=== PATIENT | male | born 1950 | race Caucasian/White ===

== ENCOUNTER 2016-10-13 05:45 | Inpatient (IN) | payer OTHER ==
[2016-10-13] MEDS ORDERED: LR 1,000 ML IV ONE (05:56)
[2016-10-13] MEDS ORDERED: LIDOCAINE 1% 2 ML INJ ID PRN (05:56)
[2016-10-13] MEDS ORDERED: cefOXitin SODIUM 2 GM in D5W 100 ML IV ONE (06:15)
[2016-10-13] MEDS ORDERED: BUPIVACAINE/EPI 0.5% 30 ML SDV ONE (06:50)
--- NOTE | 2016-10-13 07:03 | PDANEPAE ---
ANE Past Medical History - Cardiovascular History Hx Hypertension: No Hx Arrhythmias: No Hx Chest Pain: No Hx Coronary Artery / Peripheral Vascular Disease: No Hx CHF / Valvular Disease: No Hx Palpitations: No Cardiovascular History Comment: low BP. Cardiac workup in 2013 WNL. (episode of syncope) - Pulmonary History Hx COPD: No Hx Asthma/Reactive Airway Disease: No Hx Recent Upper Respiratory Infection: No Hx Oxygen in Use at Home: No Hx Sleep Apnea: No Sleep Apnea Screening Result - Last Documented: Negative - Neurologic History Hx Cerebrovascular Accident: No Hx Seizures: No Hx Dementia: No - Endocrine History Hx Diabetes: No - Renal History Hx Renal Disorders: No Renal History Comment: Prostate CA - Liver History Hx Hepatic Disorders: No - Neurological & Psychiatric Hx Hx Neurological and Psychiatric Disorders: No Neurological / Psychiatric History Comment: compressed disc-occ low back pain - Cancer History Hx Cancer: Yes Cancer History Comment: prostate - Congenital Disorder History Hx Congenital Disorders: No - GI History Hx Gastrointestinal Disorders: No - Chronic Pain History Chronic Pain: No - Surgical History Prior Surgeries: R inguinal hernia repair 2015. R rotator cuff ANE Review of Systems - Exercise capacity METS (RN): 4 METS ANE Patient History - Allergies Allergies/Adverse Reactions: No Known Allergies Allergy (Verified 09/14/16 12:06) - Home Medications Home Medications: Cholecalciferol Vit D3 [Vitamin D3 2000 units tab (OTC)] 2,000 units PO DAILY [Last Taken 10/03/16] Multivitamins [Multivitamin (*)] 1 each PO DAILY 09/14/16 [Last Taken 10/03/16] - NPO status NPO Since - Liquids (Date): 10/12/16 NPO Since - Liquids (Time): 23:15 NPO Since - Solids (Date): 10/12/16 NPO Since - Solids (Time): 22:15 - Smoking Hx Smoking Status: Never smoked ANE Labs/Vital Signs - Vital Signs Blood Pressure: 125/78 Heart Rate: 73 Respiratory Rate: 16 O2 Sat (%): 93 Height: 185.42 cm Weight: 80.739 kg ANE Physical Exam - Airway Mallampati Score: Class 2 - ASA Status ASA Status: II ANE Anesthesia Plan Anesthesia Plan: general endotracheal anesthesia
[2016-10-13] MEDS ORDERED: MIDAZOLAM 2 MG/2 ML VIAL ONE (07:06)
[2016-10-13] MEDS ORDERED: fentaNYL 100 MCG/2 ML INJ ONE ×4 (07:08→13:43)
[2016-10-13] MEDS ORDERED: ROCURONIUM 50 MG/5 ML VIAL ONE ×2 (07:08→10:09)
[2016-10-13] MEDS ORDERED: PROPOFOL 200 MG/20 ML VIAL ONE (07:08)
[2016-10-13] MEDS ORDERED: METOCLOPRAMIDE 10 MG/2 ML VIAL ONE (07:08)
[2016-10-13] MEDS ORDERED: ONDANSETRON 4 MG/2 ML VIAL ONE (07:08)
--- NOTE | 2016-10-13 07:24 | PDHPUP ---
History & Physical Update H&P update statement: This history and physical update is based on an assessment of the patient which was completed after admission or registration (within 24 hours), but prior to the surgery/procedure. H&P update: no change in patient's condition since H&P completed
[2016-10-13] MEDS ORDERED: METHYLENE BLUE 0.5% 50 MG/10 ML AMP ONE (08:38)
[2016-10-13] MEDS ORDERED: THROMBIN(HUM PLAS)/FIBRINOG/CA 5 ML VIAL TP ONE (09:16)
[2016-10-13] MEDS ORDERED: ONDANSETRON 4 MG/2 ML VIAL IVP PRN ×2 (13:17→13:24)
[2016-10-13] MEDS ORDERED: NALOXONE HCL 0.4 MG/ML INJ IVP PRN ×2 (13:17→13:25)
[2016-10-13] MEDS ORDERED: PROMETHAZINE HCL 25 MG/ML INJ IVP PRN ×2 (13:17→13:24)
[2016-10-13] MEDS ORDERED: LR 500 ML IV PRN (13:17)
--- NOTE | 2016-10-13 13:18 | POSTANESTH ---
Post Anesthetic Evaluation Cardiovascular Status: Normal, Stable Respiratory Status: Normal, Stable Level of Consciousness/Mental Status: Can Participate in Eval Pain Control: Adequate, Prn Tx Ordered Nausea/Vomiting Control: Adequate, Prn Tx Ordered Complications Possibly Related to Anesthesia: None Noted
--- NOTE | 2016-10-13 13:23 | POSTOPPROG ---
Post Op Note Date of Operation: 10/18/16 Surgeon: Guru Dubon (# [id number]) Anesthesia: GET(General Endotracheal) Pre-op Diagnosis: Prostate cancer Post-op Diagnosis: 1. Prostate cancer 2. Possible left ureteral injury Procedure: 1. Robotic radical prostatectomy + bilat. PLND 2. Left ureteral reimplan Findings: See op note Inf/Abcess present in the surg proc area at time of surgery?: No EBL: 50-100 (350 cc) Complications: Potential left ureteral injury, necessitating left ureteroneocystostomy Drains: Ashu Newsome (10 Flat) Specimen(s): 1. Prostate + SV's 2. Bilateral PLN packages
[2016-10-13] MEDS ORDERED: LIDOCAINE 2% JELLY 5 ML TUBE TP PRN (13:24)
[2016-10-13] MEDS ORDERED: HYDROmorphONE/DILAUDID 6 MG/30 ML PCA IV PRN (13:25)
[2016-10-13] MEDS: fentaNYL 100 MCG/2 ML INJ IVP PRN ×2 (13:48→14:05)
[2016-10-13 14:17] LABS: ANION GAP 13 mEq/L (8-16); CALCIUM 8.3 mg/dL (8.5-10.4); CARBON DIOXIDE 24 mEq/l (22-31); CHLORIDE 105 mEq/L (97-110); CREATININE 1.1 mg/dL (0.7-1.3); GLOMERULAR FILTRATION RATE > 60; GLUCOSE 171 mg/dL (70-100); POTASSIUM 3.6 mEq/L (3.5-5.2); SODIUM 142 mEq/L (134-144)
[2016-10-13] MEDS ORDERED: cefOXitin SODIUM 2 GM in D5W 100 ML IV SCH (15:00)
[2016-10-13] MEDS: D5W 1/2 NS 1,000 ML IV SCH ×2 (15:01→23:01)
[2016-10-13] MEDS: cefOXitin SODIUM 2 GM in D5W 100 ML IV SCH ×2 (16:53→22:57)
[2016-10-13] MEDS ORDERED: KETOROLAC 30 MG/1 ML SDV IVP ONE (23:01)
[2016-10-14] MEDS: KETOROLAC 15 MG/1 ML SDV IVP SCH ×4 (04:11→22:25)
[2016-10-14] MEDS: D5W 1/2 NS 1,000 ML IV SCH (04:12)
[2016-10-14 05:17] LABS: HEMOGLOBIN 11.6 g/dL (13.7-17.5); MEAN CELL HEMOGLOBIN 31.3 pg (27.9-34.1); MEAN CELL HEMOGLOBIN CONCENTR. 33.1 g/dL (32.4-36.7); MEAN CELL VOLUME 94.3 fL (81.5-99.8); RED BLOOD CELL COUNT 3.71 10^6/uL (4.40-6.38); RED CELL DISTRIBUTION WIDTH 12.9 % (11.5-15.2)
[2016-10-14 05:32] LABS: ANION GAP 5 mEq/L (8-16); CALCIUM 7.9 mg/dL (8.5-10.4); CARBON DIOXIDE 26 mEq/l (22-31); CHLORIDE 103 mEq/L (97-110); CREATININE 0.9 mg/dL (0.7-1.3); GLOMERULAR FILTRATION RATE > 60; GLUCOSE 129 mg/dL (70-100); POTASSIUM 3.8 mEq/L (3.5-5.2); SODIUM 134 mEq/L (134-144)
[2016-10-14] MEDS: cefOXitin SODIUM 2 GM in D5W 100 ML IV SCH (07:50)
--- NOTE | 2016-10-14 10:08 | SOAPPROG ---
<Stella Russell - Last Filed: 10/14/16 10:06> SOAP Progress Note Assessment/Plan: Assessment: Post op robotic radical prostatectomy with lymph node dissection Plan: Advance diet to regular. Patient is to ambulate. Dr Dubon to see this afternoon and consider discharge. 10/14/16 10:06 Objective: Vital Signs Temp Pulse Resp BP Pulse Ox 36.5 C 74 16 105/59 L 96 10/14/16 08:15 10/14/16 08:15 10/14/16 08:15 10/14/16 08:15 10/14/16 08:15 Laboratory Results 10/14/16 04:47 10/14/16 04:47 10/13/16 10/14/16 10/15/16 05:59 05:59 05:59 Intake Total 4645 Output Total 1620 Balance 3025 Physical Exam - Physical Exam General Appearance: alert, no apparent distress Respiratory: normal breath sounds, No respiratory distress Cardiac/Chest: regular rate, rhythm Abdomen: non-tender, other (VICTORINO minimal bloody fluid output. incisions without sign of infection), No distended Male Genitalia: other (bloody urine in catheter bag) Skin: normal color, warm/dry Neuro/Psych: no motor/sensory deficits, alert ICD10 Worksheet Patient Problems: Problems Problem Status Onset Prostate cancer Acute - ICD10 Problem Qualifiers (1) Prostate cancer <Guru Dubon Nisha - Last Filed: 10/14/16 17:19> SOAP Progress Note Assessment/Plan: Assessment: Agree. He is doing well, but has only ambulated once today. Plan: Discharge either this evening or in AM. Objective: Vital Signs Temp Pulse Resp BP Pulse Ox 36.8 C 90 18 112/72 91 L 10/14/16 15:42 10/14/16 15:42 10/14/16 15:42 10/14/16 15:42 10/14/16 15:42 Laboratory Results 10/14/16 04:47 10/14/16 04:47 10/13/16 10/14/16 10/15/16 05:59 05:59 05:59 Intake Total 4645 865 Output Total 1620 1460 Balance 3025 -595
[2016-10-14] MEDS ORDERED: MAGNESIUM HYDROXIDE 30 ML UDCUP PO PRN (14:19)
[2016-10-14] MEDS: HYDROCODONE/APAP 10/325 TAB PO PRN ×2 (15:48→22:26)
[2016-10-14] MEDS: SENNOSIDES/DOCUSATE SODIUM TAB PO SCH (20:42)
[2016-10-15] MEDS: KETOROLAC 15 MG/1 ML SDV IVP SCH ×2 (04:42→12:58)
[2016-10-15] MEDS: SENNOSIDES/DOCUSATE SODIUM TAB PO SCH (09:52)
--- NOTE | 2016-10-15 10:06 | SOAPPROG ---
SOAP Progress Note Assessment/Plan: Assessment: Pt is doing well, but kept overnight due to minimal ambulation. Plan: Discharge. 10/15/16 10:05 Objective: Vital Signs Temp Pulse Resp BP Pulse Ox 37.0 C 86 16 117/64 91 L 10/15/16 07:58 10/15/16 07:58 10/15/16 07:58 10/15/16 07:58 10/15/16 07:58 Laboratory Results 10/14/16 04:47 10/14/16 04:47 10/14/16 10/15/16 10/16/16 05:59 05:59 05:59 Intake Total 4645 1265 Output Total 1620 0920 Balance 3025 -1325 ICD10 Worksheet Patient Problems: Problems Problem Status Onset Prostate cancer Acute
[2016-10-15] MEDS: HYDROCODONE/APAP 10/325 TAB PO PRN ×2 (12:50→14:51)
[2016-10-15 15:17] VITALS: BP 121/72; PULSE 81; RESP 18; TEMP 98.4; O2SAT 95
--- NOTE | 2016-10-19 | GOP ---
[f rep st] OPERATIVE REPORT DATE OF OPERATION: 10/13/2016 SURGEON: Guru Dubon MD SENIOR CONSTRUCTION MANAGER: Nazanin James CFA ANESTHESIA: General endotracheal. PREOPERATIVE DIAGNOSIS: Prostate adenocarcinoma. POSTOPERATIVE DIAGNOSIS: 1. Prostate adenocarcinoma. 2. Potential left ureteral injury. PROCEDURE PERFORMED: 1. Robotically-assisted radical retropubic prostatectomy and bilateral pelvic lymphadenectomy. 2. Robotically-assisted left ureteroneocystostomy with ureteral stent placement. FINDINGS: 1. Clinically localized prostate cancer. 2. Potential intraoperative left ureteral injury, as noted in the body of the operative report. SPECIMENS: 1. Prostate with attached seminal vesicles. 2. Bilateral pelvic lymph node packages. ESTIMATED BLOOD LOSS: Approximately 350 cc. INDICATIONS: This gentleman was recently diagnosed with a clinically-localized prostate adenocarcin mamta and has opted for radical prostatectomy as definitive therapy. The indications for the procedur es as well as potential risks and complications were discussed with the patient preoperatively. He appeared to understand, his questions were answered, and he wished to proceed. Written informed davie gical consent was thereafter obtained. DESCRIPTION OF PROCEDURE: The patient was brought to the operating room and administered general en dotracheal anesthesia. He was carefully placed in a low lithotomy position in a supine fashion on t he operating room table utilizing Conor stirrups. The abdomen and genitalia were sterilely prepped and draped utilizing Ioban. An 18-Syrian Galvez catheter was placed to bag drainage sterilely on the field without complication. Intraabdominal access was obtained in the midline, just above the umbi licus with a Veress needle. The abdomen was insufflated to 15 mmHg pressure, which was the pressure maintained throughout the majority of the case. A 12 mm laparoscopic port was placed at this locat ion and proper intraabdominal positioning was confirmed with the robotic camera. I then marked out my remaining port sites, which were as follows: An 8 mm robotic port in the left lower quadrant kalpana roximately 2 cm below the umbilicus and 12 cm lateral to the midline; an 8 mm robotic port in right lower quadrant approximately 2 cm below the umbilicus and 7.5 cm lateral to the midline; a 3rd 8 mm robotic port placed approximately 8 cm lateral to the right lower quadrant port and in the same huang sverse line as the umbilicus; and a 12 mm recreation assistant port placed in the left upper quadrant, all yariel g the lateral edge of the rectus muscle. All these ports were placed under direct vision without co mplication. The patient was then placed in 27-degree Trendelenburg position and the robot was docke d between the patient's legs with all appropriate arms connected to the respective ports. I used a 0-degree 12 mm camera throughout the remainder of the case. I then left the patient's bedside and e ntered the surgeon's robotic console. I began the robotic portion of the procedure by mobilizing the left colon off the lateral abdominal wall carefully with monopolar scissors dissection. After performing this maneuver, this allowed for adequate access to the prerectal space. A transverse incision across the midline was made through the posterior perineum approximately 2 cm above the rectum. Gentle spreading motion was then used t o attempt to identify the location of the vas deferens and seminal vesicles. I did have some diffic ulty identifying these structures initially. I decided to try and track the vas deferens on the lef t side from the position of the spermatic cord and follow it down into the deep pelvis. I identifie d a structure which I thought was the vas deferens. I followed it into the pelvis. As it turned ou t, this structure was actually the left ureter and this was determined as I saw it entering the blad kaylin hiatus. This structure also did appear to peristalse, thereby consistent with ureter rather joanna n vas deferens. As I carefully examined the segment of ureter which was dissected, which was predom inantly the distal aspect, there did appear to be a possible mukund through the serosa of the bladder into the lumen in a couple of different areas just above the bladder hiatus. I had Anesthesia injec t methylene blue intravenously and ultimately I was able to identify what looked to be a couple of s uspicious areas for injury to the left ureter. I decided this would be best managed with ureteral r eimplantation. However, I decided to postpone this particular portion of the operation until comple ting the prostatectomy. We then carefully continued to dissect in the lower midline above the rectum and was ultimately able to identify the vas deferens and seminal vesicles bilaterally. I dissected them free from the surr ounding structures carefully. The vas deferens were ligated a couple centimeters proximal to their insertion at the base of the prostate with monopolar scissors. The tips to the seminal vesicles wer e ligated with Hem-o-juliann clips and divided with scissors. Once these structures were completely mj e, a transverse incision through Denonvilliers' fascia, just below the base of the prostate in the m idline, was made with monopolar scissors. A gentle spreading motion was then used to dissect the re ctum posteriorly off the prostate anteriorly as far towards the prostatic apex as possible. This co mpleted the posterior dissection. I then turned my attention to performing the anterior dissection for the remainder of the prostatect suraj and pelvic lymphadenectomy. The anterior peritoneum was entered high along the anterior abdomin al wall while staying lateral to the obliterated umbilical ligaments bilaterally. These incisions t hrough the anterior peritoneum were then carried back toward the spermatic cord with monopolar sciss ors, while staying somewhat parallel to the obliterated umbilical ligaments. A gentle spreading mot ion was then used to develop the lateral pelvic spaces bilaterally, thereby allowing for visualizati on of the endopelvic fascia. The endopelvic fascia was incised along the mid aspect of the prostate and scissors were then used to carry this incision through the pelvic fascia from the base of the p rostate up to the apex. The levator ani muscles were carefully teased off the prostate bilaterally with gentle blunt dissection. The puboprostatic ligaments were identified and transected under dire ct vision. The dorsal vein complex was then dissected carefully from the surrounding tissue, then l igated with 2 separate 0 Vicryl stick ties using slip-knot technique while staying above the urethra and distal to the prostatic apex. At this point, I decided to perform a left pelvic lymphadenectomy. The following limits of dissecti on were used: The lateral bladder medially, Eran's ligament laterally, the bifurcation of the com mon iliac vein superiorly, Eran's ligament inferiorly, and the obturator nerve posteriorly. The i ntervening lymphatics and small vasculature were ligated with Hem-o-juliann clips as necessary. The pel [place] lymph node packages were then extracted with a specimen bag and sent to Pathology for permanent histologic examination. At the completion of this portion of the procedure, the obturator nerve and iliac vessels were intact and unharmed. Adequate hemostasis was also present. I then performed the bladder neck dissection with monopolar scissors. I carefully the estrella dder from the base of the prostate and continued this dissection deeply until I was able identify th e fibers of the bladder neck. I performed a bladder neck sparing procedure asthma as much as possib le at this location while taking care not to compromise the bladder neck margin of the prostate at t his location. The urethra was then transected with scissors and the existing indwelling Galvez matthew ter was pulled up for retraction of the bladder neck. I continued my dissection laterally and also in the midline until the previously dissected seminal vesicles and vas deferens were identified. Th samuel structures were then pulled up anteriorly. The remaining attachments between the prostatic base and the posterior bladder were then divided sharply with monopolar scissors dissection. Because of the significant extent of cancer and the patient's left side of his prostate, a non-nerve sparing d issection was performed on this side using a combination Hem-o-juliann clips and monopolar scissors. Th e prostatic pedicle on this side was ligated between a series Hem-o-juliann clips and divided with sciss ors as well. The remaining attachments between the pelvic fascia and the prostate were then dissect ed free and transected all the way to the level of the prostatic apex. Care was taken to ensure joanna t the rectum was gently and bluntly dissected free from the prostate all the way to the level of the apex. An aggressive nerve-sparing procedure was performed on the right side using an intrafascial dissecti on with cold monopolar scissors. Once the neurovascular bundle had been completely freed on the rig ht side, the pedicle was then ligated between a series of Hem-o-juliann clips and scissors. Any remaini ng pelvic attachments to the prostate were then divided with scissors. The apical dissection was then performed in a urethral length-sparing fashion. Care was again taken at this location to be sure that there would be no positive margin created as result of the apical dissection. The urethra was ultimately transected at this location, followed by division of the und erlying rectourethralis muscle and any remaining Denonvilliers' fascial attachments. The prostate w as completely free at this point, and placed in the upper abdomen to be later retrieved in a specime n bag. It should be mentioned, there was no evidence of gross extraprostatic cancer present during the operative procedure. The pelvis was then carefully inspected. No active bleeding was appreciat ed. The rectum was noted to be intact. The right neurovascular bundle also appeared to be grossly intact. The posterior plate was then reconstructed with a running 3-0 Vicryl V-Loc suture by reappr oximating the rectourethralis muscle at the level of the urethral stump to the vesicovisceral fascia along the posterior aspect of the bladder. The urethrovesical anastomosis was then completed with a double-armed 3-0 Monocryl suture in a [id number] approximating fashion. Once this anastomos is was completed, a new 18-Syrian Galvez catheter was placed in the bladder and 20 cc of sterile flui d was placed in the balloon. The catheter irrigated manually and no significant clot was retrieved from the bladder. There was also no significant extravasation from the anastomosis seen internally. I then performed the right-sided pelvic lymphadenectomy using the same limits of dissection noted fo r the left side. Once this dissection had been completed, the specimen was retrieved from the patie nt using a specimen bag. The right obturator nerve was then inspected and noted to be intact, as we re the iliac vessels. The intraabdominal pressure was then temporarily turned down to 5 mmHg and no bleeding was seen from any of the operative sites at this point. Nonetheless, I did apply Evicel t o the lymphadenectomy sites as well as the previously transected and ligated dorsal vein complex. I then turned my attention to performing the left-sided ureteroneocystostomy. The location of the u reter was then re-identified distal to the crossing over the iliac vessels. I transected the ureter at a location that was well above the areas of concern noted above in the operative report. The ur eter was spatulated at this point. The bladder was then filled with approximately 200 cc of sterile fluid through the catheter. A suitable reimplantation site was located along the left anterolatera l aspect of the bladder. I incised through the serosa muscularis and mucosa of the bladder at this location. A double-armed 4-0 Monocryl suture was then used to perform a [id number] approximat ing ureteral reimplantation. Before completing the reimplantation, a 0.035-inch guidewire was inser rita through the created ureterostomy and into the renal pelvis, followed by the passage of a 4.7-Mj nch x 26 cm ureteral stent. The distal end of stent was passed into the bladder. The anastomosis w as then completed. No bleeding was noted from the site and there appeared to be a nice anastomosis performed at the conclusion of this portion of the procedure. This completed the robotic portion of the procedure. I returned to the patient's bedside and the robot was undocked. The anterior rectus fascia at the location of the 12 mm recreation assistant port was reapproximated with an 0 Vicryl suture and the fascial closure device. The supraumbilical midline incision was extended slig htly in order to allow for retrieval of the specimen bag. It should be mentioned, that before the r obot was undocked and after completing the ureteroneocystostomy, a 10 flat Ashu-Newsome drain was p laced through the left lower quadrant robotic port and draped in the pelvis. It was ultimately secu red to the skin with a 2-0 silk suture and connected to bulb suction. The prostate was also retriev ed in a 10 mm specimen bag through the supraumbilical midline incision. After retrieving the specim en through this port site, the anterior rectus fascia at this location was closed in a transverse fa shion with a running 0 Vicryl suture. All of the skin sites were anesthetized with a total of 30 cc of 0.5% Marcaine with epinephrine. The skin edges of each incision point were then closed with a r unning 4-0 Monocryl subcuticular suture. These wounds were dressed with Dermabond, followed by the application of a 4 x 4 dressing and Tegaderm at the VICTORINO drain site. The patient was then awakened, e xtubated, transferred to his bed, then taken to the recovery room. He tolerated the procedure well overall. COMPLICATIONS: Potential left ureteral injury, leading to left ureteroneocystostomy. DISPOSITION: He was transferred to the recovery room in stable condition. He will be admitted for postoperative care. /[id number]/MODL
== END 2016-10-15 15:34 | disposition home or self-care (01) | DRG 707 ==
LOC: F1N 05:45
PROVIDERS: ADMIT Specialist; ATTEND Specialist
PROC: 0VT04ZZ Resection of Prostate, Percutaneous Endoscopic Approach (ICD-10-PCS; principal; 2016-10-13 07:15)
PROC: 07BC4ZZ Excision of Pelvis Lymphatic, Percutaneous Endoscopic Approach (ICD-10-PCS; principal; 2016-10-13 07:15)
PROC: 0TS74ZZ Reposition Left Ureter, Percutaneous Endoscopic Approach (ICD-10-PCS; principal; 2016-10-13 07:15)
PROC: 0T774DZ Dilation of Left Ureter with Intraluminal Device, Percutaneous Endoscopic Approach (ICD-10-PCS; principal; 2016-10-13 07:15)
PROC: 8E0WXCZ Robotic Assisted Procedure of Trunk Region (ICD-10-PCS; principal; 2016-10-13 07:15)
DX: C61 Malignant neoplasm of prostate (principal); N99.72 Accidental puncture and laceration of a genitourinary system organ or structure during other procedure; N52.9 Male erectile dysfunction, unspecified; K21.9 Gastro-esophageal reflux disease without esophagitis; Z85.828 Personal history of other malignant neoplasm of skin; Z80.1 Family history of malignant neoplasm of trachea, bronchus and lung
CPT/HCPCS: C1769; C2625; J0694; J1170; J1885; J2250; J2405; J2704; J2765; J3010; Q9968

== ENCOUNTER → 2016-10-21 | Outpatient (CLI) | payer OTHER ==
[~2016-10-21] MED LIST: IOTHALAMATE MEG (CYSTO-CONRAY II) 250 ML VIAL BLADIN ONE
== END ==
LOC: CIMAGING 13:57
PROVIDERS: ATTEND Specialist
DX: R93.49 Abnormal radiologic findings on diagnostic imaging of other urinary organs (principal); Z96.0 Presence of urogenital implants; Z98.890 Other specified postprocedural states
CPT/HCPCS: Q9961

== ENCOUNTER → 2017-01-11 | Outpatient (CLI) | payer OTHER | LOC: FIMAGING 09:35 | PROVIDERS: ATTEND Specialist | DX: C61 Malignant neoplasm of prostate (principal) ==